=== PATIENT | female | born 1965 | race African-American/Black ===

== ENCOUNTER 2020-10-05 13:18 | Outpatient (CLI) | payer MEDICAID ==
[~2020-10-05] VITALS: Ht 167.6 cm; Wt 86.6 kg
[2020-10-05 13:34] VITALS: BP 154/89
--- NOTE | 2020-10-05 15:45 | Consultation ---
DATE OF CONSULTATION: 10/05/2020 CONSULTING PHYSICIAN: Damaso Ruiz MD REASON FOR CONSULTATION: Referral for screening colonoscopy. PAST MEDICAL HISTORY: 1. Hypertension. 2. Diabetes. PAST SURGICAL HISTORY: None. MEDICATIONS: Please see medication reconciliation list. FAMILY HISTORY: Noncontributory. SOCIAL HISTORY: Patient occasionally drinks alcohol. Patient used to smoke, quit in 2018. No IV drug abuse. ALLERGIES: Allergic to . REVIEW OF SYSTEMS: Positive for mild constipation, on and off GERD. PHYSICAL EXAMINATION: VITAL SIGNS: Temperature 96.6, blood pressure is , pulse 90, respirations 20. Height is 5 feet 6 inches, weight is 181. HEENT: Normocephalic, atraumatic. Sclerae anicteric. NECK: Supple. No evidence of obvious lymphadenopathy. CARDIOVASCULAR: Regular rate and rhythm. Plus S1, S2. LUNGS: Clear to auscultation bilaterally. ABDOMEN: Positive bowel sounds. Soft and nontender. No rebound. No guarding. No peritoneal sign. EXTREMITIES: No cyanosis, no clubbing, no edema. ASSESSMENT AND PLAN: A 55-year-old female referred for screening colonoscopy. Patient was given instruction for colonoscopy. Risks and benefits of procedure were explained to her. We are going to schedule her as soon as authorization is obtained. Damaso Ruiz M.D. DR: SARA JOB#: [id number] CC:
[2020-10-06] MEDS ORDERED: LANTUS SOL100 UNIT/1 SUBQ (10:52)
[2020-10-06] MEDS ORDERED: DM MED (10:52)
[2020-10-06] MEDS ORDERED: LOSARTAN POTASS50 MG ORAL (10:52)
[2020-10-06] MEDS ORDERED: AMLODIPINE BESYL5 MG ORAL (10:52)
== END 2020-10-05 15:18 | disposition home or self-care (01) ==
LOC: PAN 13:18
DX: K59.00 Constipation, unspecified (principal); K21.9 Gastro-esophageal reflux disease without esophagitis; I10 Essential (primary) hypertension; E11.9 Type 2 diabetes mellitus without complications; Z87.891 Personal history of nicotine dependence
CPT/HCPCS: G0463